=== PATIENT | male | born 1955 | race African-American/Black ===

== ENCOUNTER 2017-07-28 02:06 | Inpatient (IN) | payer OTHER ==
[2017-07-28] MEDS ORDERED: LORazepam 2 MG/ML INJ IV STA (02:19)
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
[2017-07-28 02:25] LABS: Basophils % (A) 0 %; Eosinophils # (A) 0.1 k/uL (0-0.7); Eosinophils % (A) 1 %; HCT 51.4 % (39.0-53.0); Lymphocytes # (A) 1.9 k/uL (1.0-4.8); Lymphocytes % (A) 21 %; MCH 28.4 pg (25.0-35.0); MCHC 31.1 g/dL (31.0-37.0); MCV 91.4 fL (80.0-100.0); Mean Platelet Volume 7.8; Monocytes # (A) 0.4 k/uL (0-1.0); Monocytes % (A) 5 %; Neutrophils # (A) 6.2 k/uL (1.3-7.7); Neutrophils % (A) 69 %; Platelet Count 233 k/uL (150-450); RBC 5.62 m/uL (4.30-5.90); WBC 8.9 k/uL (3.8-10.6)
--- NOTE | 2017-07-28 02:33 | XR ---
EXAMINATION TYPE: XR chest 1V DATE OF EXAM: 07/28/2017 COMPARISON: NONE HISTORY: Chest pain TECHNIQUE: Single frontal view of the chest is obtained. FINDINGS: There is no heart failure nor confluent pneumonic infiltrate. Costophrenic angles are brionna r. There are chest leads. IMPRESSION: No active cardiopulmonary disease.
[2017-07-28 02:35] LABS: Prothrombin Time 10.1 sec (9.0-12.0)
[2017-07-28 02:38] LABS: Amphetamine Screen,Urine Not Detected (NotDetected); Barbiturate Screen,Urine Not Detected (NotDetected); Benzodiazepines Screen,Urine Not Detected (NotDetected); Cocaine Screen,Urine Detected (NotDetected); Methadone Screen, Urine Not Detected (NotDetected); Opiate Screen,Urine Not Detected (NotDetected); Oxycodone Screen, Urine Not Detected (NotDetected); Phencyclidine Screen,Urine Not Detected (NotDetected); Tricyclic Antidepressant,Urine Not Detected (NotDetected); Urn Cannabinoid Scrn Not Detected (NotDetected)
[2017-07-28 02:43] LABS: Calcium 10.1 mg/dL (8.4-10.2); Potassium 4.7 mmol/L (3.5-5.1); Total Bilirubin 1.1 mg/dL (0.2-1.3); Total Protein 7.6 g/dL (6.3-8.2)
[2017-07-28 02:45] LABS: Partial Thromboplastin Time 20.7 sec (22.0-30.0)
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
[2017-07-28] MEDS ORDERED: SODIUM CHLORIDE 0.9% 1,000 ML IV STA (02:48)
[2017-07-28] MEDS ORDERED: ATORVASTATIN 80 MG TAB PO STA (02:49)
[2017-07-28] MEDS ORDERED: ASPIRIN 81 MG PO STA (02:49)
[2017-07-28] MEDS ORDERED: HEPARIN SODIUM,PORCINE 5,000 UNIT/ML 1 ML VIAL IV STA (02:49)
[2017-07-28] MEDS ORDERED: MIDAZOLAM 2 MG/2 ML VIAL ONE ×2 (02:52→03:41)
[2017-07-28 02:59] LABS: Troponin I 0.034 ng/mL (0.000-0.034)
[2017-07-28 03:00] LABS: Creatine Kinase MB 2.7 ng/mL (0.0-2.4)
[2017-07-28] MEDS: MIDAZOLAM 2 MG/2 ML VIAL IVP ONE ×2 (03:02→03:20)
[2017-07-28] MEDS ORDERED: LIDOCAINE 2% INJ 20 MG/ML SQ ONE (03:12)
[2017-07-28] MEDS ORDERED: ENALAPRILAT 1.25 MG/ML 1 ML VIAL ONE (03:20)
[2017-07-28] MEDS ORDERED: hydrALAZINE HCL 20 MG/ML 1 ML VIAL ONE (03:20)
[2017-07-28] MEDS ORDERED: hydrALAZINE HCL 20 MG/ML 1 ML VIAL IV ONE (03:23)
[2017-07-28] MEDS ORDERED: IV FLUID CONTINUATION 1,000 ML IV ONE (03:24)
[2017-07-28] MEDS ORDERED: ENALAPRILAT 1.25 MG/ML 1 ML VIAL IV ONE (03:24)
[2017-07-28] MEDS ORDERED: SUCCINYLCHOLINE CHLORIDE 100 MG/5 ML SYR IV ONE (03:35)
[2017-07-28] MEDS ORDERED: PROPOFOL 10 MG/ML 20 ML VIAL IV ONE (03:35)
[2017-07-28] MEDS ORDERED: MIDAZOLAM 2 MG/2 ML VIAL IV ONE (03:43)
[2017-07-28] MEDS ORDERED: BIVALIRUDIN BOLUS 250 MG/50 ML IV ONE (03:44)
[2017-07-28] MEDS ORDERED: BIVALIRUDIN 250 MG in SODIUM CHLORIDE 0.9% 50 ML IV ONE (03:44)
[2017-07-28] MEDS ORDERED: PROPOFOL 1,000 MG in EMPTY BAG 1 BAG IV ONE (03:48)
[2017-07-28] MEDS ORDERED: CLOPIDOGREL 75 MG TAB ONE (04:01)
[2017-07-28] MEDS ORDERED: CLOPIDOGREL 75 MG TAB OG-TUBE ONE (04:08)
[2017-07-28] MEDS ORDERED: NITROGLYCERIN SL TABS 0.4 MG TAB SUBLINGUAL PRN (04:13)
[2017-07-28] MEDS ORDERED: RX INFO: IV CONTRAST WAS GIVEN 1 EACH MISC MISCELLANE PRN (04:13)
[2017-07-28] MEDS ORDERED: MAG HYDROX/AL HYDROX/SIMETH 30 ML CUP PO PRN (04:13)
[2017-07-28] MEDS ORDERED: ATROPINE SULFATE 0.1 MG/ML 10ML SYRINGE IV PRN (04:13)
[2017-07-28] MEDS ORDERED: ZOLPIDEM 5 MG TAB PO PRN (04:13)
[2017-07-28] MEDS ORDERED: SODIUM CHLORIDE 0.9% 1,000 ML IV SCH (04:15)
[2017-07-28] MEDS ORDERED: SODIUM CHLORIDE 0.9% 1,000 ML IV ONE (04:19)
[2017-07-28] MEDS ORDERED: IODIXANOL 320 MG/ML 100 ML INTRAARTER ONE (04:19)
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
[2017-07-28 04:47] LABS: Glucose,Whole Blood 92 mg/dL (75-99)
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
[2017-07-28 05:11] LABS: ABG Base Excess 2.2 mmol/L; ABG HCO3 28 mmol/L (21-25); ABG Oxygen Saturation 99.3 % (94-97); ABG PCO2 53 mmHg (35-45); ABG PH 7.33 (7.35-7.45); ABG PO2 >400 mmHg (83-108); ABG TCO2 30 mmol/L (19-24)
[2017-07-28] MEDS ORDERED: NALOXONE 0.4 MG/ML 1 ML VIAL IV PRN ×2 (05:26→05:59)
[2017-07-28] MEDS: PROPOFOL 1,000 MG in EMPTY BAG 1 BAG IV SCH ×2 (05:52→10:57)
[2017-07-28 05:54] LABS: Basophils % (A) 0 %; Eosinophils # (A) 0.1 k/uL (0-0.7); Eosinophils % (A) 1 %; HCT 47.7 % (39.0-53.0); HGB 15.2 gm/dL (13.0-17.5); Lymphocytes # (A) 0.5 k/uL (1.0-4.8); Lymphocytes % (A) 5 %; MCH 28.9 pg (25.0-35.0); MCHC 31.9 g/dL (31.0-37.0); MCV 90.6 fL (80.0-100.0); Mean Platelet Volume 7.6; Monocytes # (A) 0.4 k/uL (0-1.0); Monocytes % (A) 4 %; Neutrophils # (A) 8.8 k/uL (1.3-7.7); Neutrophils % (A) 90 %; Platelet Count 192 k/uL (150-450); RBC 5.26 m/uL (4.30-5.90); RDW 15.2 % (11.5-15.5); WBC 9.9 k/uL (3.8-10.6)
[2017-07-28 05:59] LABS: Appearance,Urine Cloudy (Clear); Bilirubin,Urine Negative (Negative); Blood,Urine Large (Negative); Color,Urine Yellow; Glucose,Urine (UA) Negative (Negative); Ketones,Urine Trace (Negative); Leukocyte Esterase,Urine Negative (Negative); Mucus,Urine Rare /hpf; Protein,Urine 1+ (Negative); RBC,Urine 145 /hpf (0-5); Squamous Epithelial Cell,Urine <1 /hpf (0-4); Urobilinogen,Urine <2.0 mg/dL (<2.0); WBC,Urine 96 /hpf (0-5)
[2017-07-28 06:00] LABS: Specific Gravity,Urine >1.050 (1.001-1.035)
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
[2017-07-28 06:25] LABS: Anion Gap 8 mmol/L; Blood Urea Nitrogen 22 mg/dL (9-20); Calcium 9.5 mg/dL (8.4-10.2); Carbon Dioxide 26 mmol/L (22-30); Chloride 107 mmol/L (98-107); Glucose 89 mg/dL (74-99); Phosphorus 2.9 mg/dL (2.5-4.5); Potassium 4.3 mmol/L (3.5-5.1); Sodium 141 mmol/L (137-145)
--- NOTE | 2017-07-28 07:15 | XR ---
EXAMINATION TYPE: XR chest 1V DATE OF EXAM: 07/28/2017 COMPARISON: NONE INDICATION: Difficulty breathing, tube placement TECHNIQUE: Single frontal view of the chest is obtained. FINDINGS: The heart size is normal. The pulmonary vasculature is normal. The lungs are clear. Endotracheal tube tip is above the darren. Nasogastric tube transverses the thorax with tip in left u pper quadrant of the abdomen. IMPRESSION: 1. Improved pulmonary vascular markings. 2. Placement of endotracheal tube and nasogastric tube
[2017-07-28] MEDS: ASPIRIN 325 MG TAB PO SCH (08:22)
[2017-07-28] MEDS ORDERED: CHLORHEXIDINE GLUCONATE 15 ML CUP MUCOUS MEM SCH (09:00)
[2017-07-28] MEDS ORDERED: PANTOPRAZOLE 40 MG/10 ML VIAL IV SCH (09:00)
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
[2017-07-28] MEDS: IPRATROPIUM-ALBUTEROL 3 ML NEB INHALATION SCH ×3 (11:46→20:54)
--- NOTE | 2017-07-28 11:58 | PN ---
PROGRESS NOTE This patient admitted during the night with acute myocardial infarction and underwent stent to the LAD. The patient is positive for cocaine. He is intubated because he was quite agitated. The patient is now stable hemodynamically. Blood pressure is 142/90 mmHg, heart rate is 70 per minute, first and second heart sounds are normal. Lungs are fairly clear to auscultation and percussion. PLAN: We will repeat a EKGs, start the patient on Lopressor 25 mg b.i.d. Echo and Doppler study will be obtained. We will obtain further troponin q.6 hours x3. MMODL / IJN: [id number] /
[2017-07-28] MEDS: METOPROLOL TARTRATE 25 MG TAB PO SCH ×2 (12:41→21:34)
--- NOTE | 2017-07-28 12:56 | ECHOF ---
Referral Reason:stemi MEASUREMENTS -------- HEIGHT: 182.9 cm WEIGHT: 88.9 kg BP: 116/76 IVSd: 1.4 cm (0.6 - 1.1) LVIDd: 4.3 cm (3.9 - 5.3) LVPWd: 1.4 cm (0.6 - 1.1) IVSs: 1.4 cm LVIDs: 4.2 cm LVPWs: 1.6 cm LAESV Index (A-L): 19.98 ml/m Ao Diam: 3.2 cm (2.0 - 3.7) AV Cusp: 2.0 cm (1.5 - 2.6) LA Diam: 4.0 cm (2.7 - 3.8) MV E Ghulam: 0.60 m/s MV DecT: 235 ms MV A Ghulam: 1.27 m/s MV E/A Ratio: 0.47 RAP: 15.00 mmHg RVSP: 46.40 mmHg MV EF SLOPE: 55.74 mm/s (70 - 150) MV EXCURSION: 1.30 cm (> 18.000) FINDINGS -------- Sinus rhythm. This was a technically good study. The left ventricular size is normal. There is moderate concentric left ventricular hypertrophy. O verall left ventricular systolic function is severely impaired with, an EF < 20%. Basal Segment Con tracting only. The right ventricle is normal in size. The right ventricular systolic function is moderately impair ed. Normal LA size by volume 22+/-6 ml/m2. The right atrium is normal in size. Aortic valve is trileaflet and is mildly thickened. There is no evidence of aortic regurgitation. There is no evidence of aortic stenosis. The mitral valve leaflets are mildly thickened. There is trace to mild mitral regurgitation. Trace tricuspid regurgitation present. There is mild pulmonary hypertension. The right ventricula r systolic pressure, as measured by Doppler, is 46.40mmHg. The pulmonic valve was not well visualized. The aortic root size is normal. The inferior vena cava is dilated with no significant inspiratory collapse which is consistent estima amber right atrial pressure of >20 mmHg. There is no pericardial effusion. CONCLUSIONS -------- 1. Sinus rhythm. 2. This was a technically good study. 3. The left ventricular size is normal. 4. There is moderate concentric left ventricular hypertrophy. 5. Overall left ventricular systolic function is severely impaired with, an EF < 20%. 6. Basal Segment Dav[place] only. 7. The right ventricular systolic function is moderately impaired. 8. Normal LA size by volume 22+/-6 ml/m2. 9. Aortic valve is trileaflet and is mildly thickened. 10. The mitral valve leaflets are mildly thickened. 11. There is trace to mild mitral regurgitation. 12. Trace tricuspid regurgitation present. 13. There is mild pulmonary hypertension. 14. The right ventricular systolic pressure, as measured by Doppler, is 46.40mmHg. 15. The pulmonic valve was not well visualized. 16. The aortic root size is normal. 17. The inferior vena cava is dilated with no significant inspiratory collapse which is consistent es timated right atrial pressure of >20 mmHg. 18. There is no pericardial effusion. FUNDRAISING MANAGER: Varghese Carblalo RDCS
--- NOTE | 2017-07-28 15:49 | P.PN ---
Progress Note - Text Progress Note Date: 07/28/17 Briefly this is a 62-year-old -[place]i male is admitted with acute ST elevation [place] he had a left heart catheterization and received stenting to the proximal LAD the patient is currently intubated and sedated on propofol, he had a previous hypertensive reaction to weaning off the propofol We'll continue the patient on dual antiplatelet therapy with plavix and aspirin. The patient passes his weaning trial and is extubated we'll need to control his blood pressure with IV labetalol or Vasotec her amlodipine as a patient did have positive UDS for cocaine on presentation. Review of his echocardiogram indicates systolic CHF with ejection fraction of less than 20%. Appreciate cardiology and pulmonary recommendations continue to follow with you
[2017-07-28 17:23] LABS: Hemoglobin A1C 6.1 % (4.0-6.0)
[2017-07-28] MEDS: ATORVASTATIN 80 MG TAB PO SCH (21:35)
[2017-07-29] MEDS: IPRATROPIUM-ALBUTEROL 3 ML NEB INHALATION SCH ×6 (00:32→19:59)
[2017-07-29] MEDS ORDERED: CLOPIDOGREL 75 MG TAB PO SCH (04:15)
[2017-07-29 04:52] LABS: Basophils % (A) 0 %; Eosinophils # (A) 0.1 k/uL (0-0.7); Eosinophils % (A) 1 %; HCT 47.1 % (39.0-53.0); HGB 14.3 gm/dL (13.0-17.5); Lymphocytes # (A) 1.4 k/uL (1.0-4.8); Lymphocytes % (A) 19 %; MCH 28.1 pg (25.0-35.0); MCHC 30.4 g/dL (31.0-37.0); MCV 92.4 fL (80.0-100.0); Mean Platelet Volume 7.8; Monocytes # (A) 0.5 k/uL (0-1.0); Monocytes % (A) 6 %; Neutrophils # (A) 5.2 k/uL (1.3-7.7); Neutrophils % (A) 70 %; Platelet Count 184 k/uL (150-450); RDW 15.1 % (11.5-15.5); WBC 7.4 k/uL (3.8-10.6)
[2017-07-29 05:04] LABS: Anion Gap 8 mmol/L; Blood Urea Nitrogen 20 mg/dL (9-20); Calcium 9.1 mg/dL (8.4-10.2); Carbon Dioxide 26 mmol/L (22-30); Chloride 107 mmol/L (98-107); Glucose 84 mg/dL (74-99); Phosphorus 3.4 mg/dL (2.5-4.5); Potassium 4.6 mmol/L (3.5-5.1); Sodium 141 mmol/L (137-145)
[2017-07-29] MEDS: PANTOPRAZOLE SODIUM 40 MG GRANULE PKT PO SCH (06:54)
[2017-07-29] MEDS: METOPROLOL TARTRATE 25 MG TAB PO SCH ×2 (09:00→20:54)
[2017-07-29] MEDS: ASPIRIN 325 MG TAB PO SCH (09:00)
[2017-07-29] MEDS: CLOPIDOGREL 75 MG TAB PO SCH (09:01)
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
[2017-07-29] MEDS ORDERED: LISINOPRIL 5 MG TAB PO SCH (11:45)
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
[2017-07-29] MEDS ORDERED: LISINOPRIL 5 MG TAB PO STA (13:38)
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
[2017-07-29] MEDS: ATORVASTATIN 80 MG TAB PO SCH (20:54)
[2017-07-30] MEDS: IPRATROPIUM-ALBUTEROL 3 ML NEB INHALATION SCH ×6 (00:35→19:47)
[2017-07-30 05:59] LABS: Basophils % (A) 1 %; Eosinophils # (A) 0.2 k/uL (0-0.7); Eosinophils % (A) 3 %; HCT 44.7 % (39.0-53.0); HGB 14.4 gm/dL (13.0-17.5); Lymphocytes # (A) 1.6 k/uL (1.0-4.8); Lymphocytes % (A) 27 %; MCH 28.4 pg (25.0-35.0); MCHC 32.1 g/dL (31.0-37.0); MCV 88.6 fL (80.0-100.0); Mean Platelet Volume 7.2; Monocytes # (A) 0.3 k/uL (0-1.0); Monocytes % (A) 6 %; Neutrophils # (A) 3.5 k/uL (1.3-7.7); Neutrophils % (A) 61 %; Platelet Count 173 k/uL (150-450); RBC 5.05 m/uL (4.30-5.90); RDW 15.1 % (11.5-15.5); WBC 5.8 k/uL (3.8-10.6)
[2017-07-30] MEDS: PANTOPRAZOLE SODIUM 40 MG GRANULE PKT PO SCH (06:18)
[2017-07-30 06:25] LABS: Anion Gap 7 mmol/L; Blood Urea Nitrogen 20 mg/dL (9-20); Calcium 8.8 mg/dL (8.4-10.2); Carbon Dioxide 26 mmol/L (22-30); Chloride 110 mmol/L (98-107); Cholesterol 132 mg/dL (<200); Glucose 88 mg/dL (74-99); HDL Cholesterol 51 mg/dL (40-60); LDL Cholesterol,Calculated 68 mg/dL (0-99); Potassium 4.4 mmol/L (3.5-5.1); Sodium 143 mmol/L (137-145); Triglycerides 67 mg/dL (<150)
[2017-07-30] MEDS: METOPROLOL TARTRATE 25 MG TAB PO SCH (08:28)
[2017-07-30] MEDS: LISINOPRIL 10 MG TAB PO SCH (08:28)
[2017-07-30] MEDS: CLOPIDOGREL 75 MG TAB PO SCH (08:28)
[2017-07-30] MEDS: ASPIRIN 325 MG TAB PO SCH (08:28)
[2017-07-30] MEDS: SPIRONOLACTONE 25 MG TAB PO SCH (08:28)
[2017-07-30] MEDS: CARVEDILOL 3.125 MG TAB PO SCH ×2 (09:25→17:26)
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
[2017-07-30 11:48] VITALS: BMI 22.7
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
[2017-07-30] MEDS ORDERED: IPRATROPIUM-ALBUTEROL 3 ML NEB INHALATION PRN (20:31)
[2017-07-30] MEDS: ATORVASTATIN 80 MG TAB PO SCH (21:24)
[2017-07-31] MEDS: CARVEDILOL 3.125 MG TAB PO SCH (06:24)
[2017-07-31] MEDS: PANTOPRAZOLE SODIUM 40 MG GRANULE PKT PO SCH (06:24)
[2017-07-31 06:43] LABS: HGB 14.9 gm/dL (13.0-17.5); MCH 28.4 pg (25.0-35.0); MCHC 32.3 g/dL (31.0-37.0); RBC 5.23 m/uL (4.30-5.90); WBC 6.1 k/uL (3.8-10.6)
[2017-07-31 06:44] LABS: Basophils % (A) 0 %; Eosinophils # (A) 0.2 k/uL (0-0.7); Eosinophils % (A) 3 %; Lymphocytes # (A) 1.6 k/uL (1.0-4.8); Lymphocytes % (A) 26 %; Mean Platelet Volume 7.8; Monocytes # (A) 0.3 k/uL (0-1.0); Monocytes % (A) 6 %; Neutrophils # (A) 3.8 k/uL (1.3-7.7); Neutrophils % (A) 63 %; Platelet Count 172 k/uL (150-450)
[2017-07-31 06:56] LABS: Calcium 9.4 mg/dL (8.4-10.2); Phosphorus 3.5 mg/dL (2.5-4.5); Potassium 4.3 mmol/L (3.5-5.1)
[2017-07-31 08:22] VITALS: BP 143/92; RESP 16; TEMP 97.2
[2017-07-31] MEDS: SPIRONOLACTONE 25 MG TAB PO SCH (08:23)
[2017-07-31] MEDS: CLOPIDOGREL 75 MG TAB PO SCH (08:23)
[2017-07-31] MEDS: ASPIRIN 325 MG TAB PO SCH (08:23)
[2017-07-31] MEDS: LISINOPRIL 10 MG TAB PO SCH (08:23)
[2017-07-31] MEDS: IPRATROPIUM-ALBUTEROL 3 ML NEB INHALATION SCH ×2 (08:29→11:43)
[2017-07-31 08:38] VITALS: PULSE 62
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
[2017-08-01] MEDS ORDERED: ASPIRIN 81 MG PO SCH (09:00)
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
== END 2017-07-31 13:35 | disposition home health service (06) | DRG 246 ==
LOC: EC 02:06 → 6ICU 03:13 → 6SEL 07-29 05:25
PROVIDERS: ADMIT Internal Medicine; ATTEND Internal Medicine
PROC: 4A023N7 Measurement of Cardiac Sampling and Pressure, Left Heart, Percutaneous Approach (ICD-10-PCS; 2017-07-28)
PROC: B211YZZ Fluoroscopy of Multiple Coronary Arteries using Other Contrast (ICD-10-PCS; 2017-07-28)
PROC: 0BH17EZ Insertion of Endotracheal Airway into Trachea, Via Natural or Artificial Opening (ICD-10-PCS; 2017-07-28)
PROC: 027034Z Dilation of Coronary Artery, One Artery with Drug-eluting Intraluminal Device, Percutaneous Approach (ICD-10-PCS; principal; 2017-07-28 02:41)
PROC: 5A1935Z Respiratory Ventilation, Less than 24 Consecutive Hours (ICD-10-PCS; 2017-07-28 02:41)
DX: I21.09 ST elevation (STEMI) myocardial infarction involving other coronary artery of anterior wall (principal); J96.02 Acute respiratory failure with hypercapnia; J96.01 Acute respiratory failure with hypoxia; I50.22 Chronic systolic (congestive) heart failure; N17.9 Acute kidney failure, unspecified; I11.0 Hypertensive heart disease with heart failure; F14.10 Cocaine abuse, uncomplicated; F15.90 Other stimulant use, unspecified, uncomplicated; I25.10 Atherosclerotic heart disease of native coronary artery without angina pectoris; I25.5 Ischemic cardiomyopathy; E86.0 Dehydration; M54.2 Cervicalgia; R41.82 Altered mental status, unspecified; R51 Headache; R07.89 Other chest pain; S09.93XA Unspecified injury of face, initial encounter; Y09 Assault by unspecified means; Y92.9 Unspecified place or not applicable
CPT/HCPCS: 36415; 70450; 71045; 72125; 80048; 80053; 80061; 80306; 80320; 81001; 82550; 82553; 82805; 83036; 83735; 84100; 84484; 85025; 85610; 85730; 87070; 87086; 87205; 93005; 93306; 93458; 94002; 94640; 94760; 96374; 96375; 99291

== ENCOUNTER → 2017-12-03 | Outpatient (CLI) | payer OTHER ==
[2017-12-03 09:20] LABS: HCT 49.9 % (39.0-53.0); HGB 15.8 gm/dL (13.0-17.5); Hypochromasia Slight; MCH 29.6 pg (25.0-35.0); MCHC 31.6 g/dL (31.0-37.0); MCV 93.6 fL (80.0-100.0); Mean Platelet Volume 7.3; Platelet Count 162 k/uL (150-450); RBC 5.33 m/uL (4.30-5.90); RDW 14.7 % (11.5-15.5); WBC 6.2 k/uL (3.8-10.6)
[2017-12-03 09:36] LABS: Potassium 4.9 mmol/L (3.5-5.1)
== END ==
LOC: LABPAT 08:55
PROVIDERS: ATTEND Internal Medicine Cardiovascular Disease
DX: Z01.812 Encounter for preprocedural laboratory examination (principal); I25.5 Ischemic cardiomyopathy
CPT/HCPCS: 36415; 80051; 82565; 84520; 85027

== ENCOUNTER 2017-12-04 11:30 | Day surgery (SDC) | payer OTHER ==
[~2017-12-04 11:30] MED LIST: LACTATED RINGERS 1,000 ML IV SCH; MIDAZOLAM 2 MG/2 ML VIAL IV PRN; SODIUM CHLORIDE 0.9% 1,000 ML IV SCH; ceFAZolin 1,000 MG in SODIUM CHLORIDE 0.9% IRRIGATIO 250 ML IRRIGATION ONE; ceFAZolin IN SWFI 2 GM/20 ML SYRINGE IVP ONE; fentaNYL (PF) 50 MCG/ML 2 ML AMP IV PRN
[2017-12-04] MEDS ORDERED: PROPOFOL 10 MG/ML 20 ML VIAL IV ONE (11:58)
[2017-12-04] MEDS ORDERED: fentaNYL (PF) 50 MCG/ML 2 ML AMP ONE (11:58)
[2017-12-04] MEDS ORDERED: MIDAZOLAM 2 MG/2 ML VIAL ONE (11:58)
[2017-12-04] MEDS ORDERED: IOPAMIDOL-370 50ML BTL INJ ONE (12:10)
[2017-12-04] MEDS ORDERED: LIDOCAINE 1% INJ 10MG/ML (20 ML MDV) SQ ONE (12:26)
[2017-12-04] MEDS ORDERED: SODIUM CHLORIDE 0.9% 500 ML IV ONE (12:35)
[2017-12-04] MEDS ORDERED: ACETAMINOPHEN TAB 325 MG TAB PO PRN (13:10)
--- NOTE | 2017-12-04 13:26 | P.PCN ---
Date of Procedure: 12/04/17 Preoperative Diagnosis: Ischemic cardiomyopathy and congestive heart failure Postoperative Diagnosis: The same Procedure(s) Performed: Single-chamber single coil AICD implantation Description of Procedure: HISTORY: This is a 62-year-old gentleman with history of ischemic cardiomyopathy and congestive heart failure was advised to have prophylactic AICD implantation by Dr. Davey. Patient has ejection fraction of 30% CHF class 1-2. CONSENT:I have discussed the risks, benefits and alternative therapies for the above-mentioned procedure and for both sedation/analgesia as well as necessary blood product administration, if indicated, as they pertain to this patient. The patient has indicated understanding and acceptance of the risks and procedures discussed. PROCEDURE: Patient was brought to the lab in a fasting state. Patient was prepped and draped in the usual fashion. Patient was given IV sedation with fentanyl and Versed. The skin below the left clavicle was infiltrated with lidocaine. An incision was made parallel to deltopectoral groove was deepened until the pectoral fascia was exposed. A pocket was created by blunt dissection and cautery. Axillary venography was performed to delineate the course of the axillary vein. A single stick were performed into extrathoracic portion of the axillary vein and a sheath were advanced over the guidewires and left in subclavian vein. Conscious Sedation: This was administered by department of anesthesia . Duration 35 minutes LEAD: VENTRICLE: This is manufactured by [employer]. Model number is [id number] and the serial number is [id number]. THE DEVICE : This is manufactured by [employer]. Model number [id number] and the serial number is [id number]. The ventricular lead is maneuvered l with help of a straight and curved stylets into the left ventricle apical portion of the septum. A satisfactory position was obtained. The lead was screwed in. And thresholds were obtained. THRESHOLDS: VENTRICLE: The minimal patient threshold was 0.5 at pulse width of 0.5. The impedance was 885. The R-wave is 7.8. The lead was sutured to the floor with stay sutures over the sleeve. The lead and pulse generator remained in the pocket after it was washed with antibiotics. Pocket was closed in the usual fashion. The fascia was closed with 2-0 Prolene ,the subcutaneous tissue was closed with 3-0 Prolene and the skin was closed with 4-0 Prolene. DFT TESTING: Patient was given deep anesthesia by department of anesthesia. The ventricular fibrillation was induced with T shock. This was appropriately detected without any dropouts. A single shock of 50 J converted him back to sinus rhythm. Patient tolerated the procedure well. PROGRAMMING: BRADYCARDIA PROGRAMMING: MODE: VVI RATE: 40 OUTPUT: Ventricle: 3.5 V Tachycardia Programming length. The VF zone is programmed to a interval of 320 ms with initial detection of 30 out of 40 and the redetect of 12 out of 16. The therapies are programmed to 25 J followed by 35 J 5. The VT zone is programmed to a interval of 360 ms. The monitor zone is programmed to 450 ms. Therapies for V. tach is programmed to burst pacing followed by ramp pacing followed by cardioversion 4 FINAL IMPRESSION: #1. Successful implantation of single-chamber AICD #2. DFT testing. COMPLICATIONS: None PLAN:. Patient will monitored on the telemetry unit. Prophylactic antibacterial be continued. Chest x-ray in the morning. If stable discharge home by tomorrow morning
[2017-12-04] MEDS ORDERED: NITROGLYCERIN SL TABS 0.4 MG TAB SUBLINGUAL PRN (13:48)
[2017-12-04] MEDS ORDERED: LISINOPRIL 10 MG TAB PO STA (15:33)
[2017-12-04] MEDS: CARVEDILOL 3.125 MG TAB PO SCH (18:02)
[2017-12-04] MEDS: ceFAZolin IN SWFI 2 GM/20 ML SYRINGE IVP SCH ×2 (18:02→23:07)
[2017-12-04] MEDS ORDERED: cloNIDine HCL 0.1 MG TAB PO STA (19:13)
[2017-12-04] MEDS ORDERED: LABETALOL 5 MG/ML VIAL MDV IVP STA (19:15)
[2017-12-04] MEDS ORDERED: hydrALAZINE HCL 20 MG/ML 1 ML VIAL IVP PRN (19:39)
[2017-12-04] MEDS: ATORVASTATIN 80 MG TAB PO SCH (20:41)
[2017-12-04] MEDS: HYDROcodone/APAP 5-325MG 1 EACH TAB PO PRN (20:41)
[2017-12-05] MEDS: HYDROcodone/APAP 5-325MG 1 EACH TAB PO PRN ×3 (02:13→20:41)
[2017-12-05] MEDS: ceFAZolin IN SWFI 2 GM/20 ML SYRINGE IVP SCH ×2 (05:13→11:43)
--- NOTE | 2017-12-05 08:29 | P.PN ---
Subjective Progress Note Date: 12/05/17 This is a 62-year-old gentleman who was brought in for prophylactic AICD implantation. Patient was referred by Dr. Davey because of ischemic cardio myopathy and CHF. Patient had a device implanted yesterday. Patient has been noncompliant and is moving in bed and moving the arm. It appears that patient developed little hematoma below the device level. There is also mild drainage. His blood pressure has been fluctuating and not well-controlled. His blood pressure is about 1 4100 this morning. Patient has received Catapres and also IV labetalol yesterday and hydralazine. I'm going to add Norvasc 5 mg daily. We'll continue to monitor his vital signs. His chest x-ray appears to be normal. Device to be checked. We'll also have social service involved because patient lives by himself and may need help for management of this device and post implant status. We'll make additional about discharged after social service visits him. We will increase activity as tolerated. Objective - Vital Signs Vital signs: Vital Signs Temp 98.7 F 12/05/17 07:28 Pulse 68 12/05/17 07:28 Resp 16 12/05/17 07:28 BP 153/106 12/05/17 07:28 Pulse Ox 98 12/05/17 07:28 Intake & Output 12/04/17 12/05/17 12/05/17 18:59 06:59 18:59 Intake Total 690 Balance 690 Intake: IV 250 Oral 440 Other: Voiding Method Urinal # Voids 2 - Exam GENERAL EXAM: Patient is alert and oriented and doesn't appear to be in any acute distress HEENT: Normocephalic. Normal reaction of pupils, equal size, normal range of extraocular motion. No erythema or exudates in the throat. NECK: No masses, no nuchal rigidity. CHEST: No chest wall deformity. LUNGS: Equal air entry with no crackles or wheeze. HEART: S1 and S2 normal with no audible mumurs or gallops. Regular rhythm, femorals equal on both sides.. ABDOMEN: No hepatosplenomegaly, normal bowel sounds, no guarding or rigidity. SKIN: No rashes CENTRAL NERVOUS SYSTEM: No focal deficits. EXTREMITIES: No cyanosis, clubbing or edema. PACEMAKER SITE: There is a soft hematoma below the level of the device. There is mild drainage which is dry involving the dressing. Mild tenderness. . Assessment and Plan (1) Chronic CHF Current Visit: Yes Status: Acute Code(s): I50.9 - HEART FAILURE, UNSPECIFIED SNOMED Code(s): 93603508 (2) Chronic systolic CHF (congestive heart failure) Current Visit: Yes Status: Acute Code(s): I50.22 - CHRONIC SYSTOLIC ( CONGESTIVE) HEART FAILURE SNOMED Code(s): 464722093 (3) Cocaine abuse Current Visit: No Status: Acute Code(s): F14.10 - COCAINE ABUSE, UNCOMPLICATED SNOMED Code(s): 70081899 (4) Essential hypertension Current Visit: No Status: Acute Code(s): I10 - ESSENTIAL (PRIMARY) HYPERTENSION SNOMED Code(s): 27590033 (5) Ischemic cardiomyopathy Current Visit: No Status: Acute Code(s): I25.5 - ISCHEMIC CARDIOMYOPATHY SNOMED Code(s): 562394389 (6) Cardiac defibrillator in place Current Visit: Yes Status: Acute Code(s): Z95.810 - PRESENCE OF AUTOMATIC ( IMPLANTABLE) CARDIAC DEFIBRILLATOR SNOMED Code(s): 684088479 Plan: Continue current medical therapy. Add Norvasc for better blood pressure control. Social service he follow-up. Possible discharge within next 24 hours.
[2017-12-05] MEDS: LISINOPRIL 10 MG TAB PO SCH (08:40)
[2017-12-05] MEDS: CARVEDILOL 3.125 MG TAB PO SCH ×2 (08:40→17:58)
[2017-12-05] MEDS: SPIRONOLACTONE 25 MG TAB PO SCH (08:40)
[2017-12-05] MEDS ORDERED: ASPIRIN 325 MG TAB PO SCH (09:00)
--- NOTE | 2017-12-05 09:28 | XR ---
EXAMINATION TYPE: XR chest 2V DATE OF EXAM: 12/05/2017 COMPARISON: 07/28/2017 HISTORY: Lead placement tract. TECHNIQUE: Frontal and lateral views of the chest are obtained. FINDINGS: There is been interval placement of a single lead left-sided cardiac device that has a ellen tricular lead extending over the somewhat enlarged right ventricle on frontal and lateral views. No f ocal consolidation, pleural effusion or pneumothorax. No postprocedural pulmonary vascular congestion . Osseous structures are intact. IMPRESSION: Interval placement of a single lead left-sided cardiac device with no postprocedural pne umothorax or pulmonary vascular congestion.
[2017-12-05] MEDS: amLODIPine 5 MG TAB PO SCH (10:30)
[2017-12-05] MEDS: ATORVASTATIN 80 MG TAB PO SCH (20:41)
[2017-12-06] MEDS: SPIRONOLACTONE 25 MG TAB PO SCH (08:12)
[2017-12-06] MEDS: amLODIPine 5 MG TAB PO SCH (08:12)
[2017-12-06] MEDS: HYDROcodone/APAP 5-325MG 1 EACH TAB PO PRN (08:12)
[2017-12-06] MEDS: LISINOPRIL 10 MG TAB PO SCH (08:12)
[2017-12-06 08:41] VITALS: PULSE 70; TEMP 98.3
[2017-12-06] MEDS: CARVEDILOL 3.125 MG TAB PO SCH (09:38)
[2017-12-06 12:24] VITALS: BP 121/83; RESP 16
== END 2017-12-06 14:18 | disposition home or self-care (01) ==
LOC: CATHEP 11:30 → 3OBS 13:02 → CATHEP 12-06 14:18
PROVIDERS: ATTEND Internal Medicine Cardiovascular Disease
DX: I25.5 Ischemic cardiomyopathy (principal); I11.0 Hypertensive heart disease with heart failure; I50.22 Chronic systolic (congestive) heart failure; I25.10 Atherosclerotic heart disease of native coronary artery without angina pectoris; Z99.89 Dependence on other enabling machines and devices; F17.210 Nicotine dependence, cigarettes, uncomplicated; Z95.5 Presence of coronary angioplasty implant and graft; E78.5 Hyperlipidemia, unspecified; F14.10 Cocaine abuse, uncomplicated; Z79.02 Long term (current) use of antithrombotics/antiplatelets; Z79.82 Long term (current) use of aspirin; Z79.899 Other long term (current) drug therapy
CPT/HCPCS: 93641; 33249; 71046; C1769 ×2; C1892; C1895; C1722; J2250; J0360; J2001; J3010; J2704; J0690 ×2; Q9967